=== PATIENT | female | born 1945 | race American Indian/Alaskan Native ===

== ENCOUNTER 2016-11-25 17:25 | Observation (INO) | payer MEDICARE ==
[2016-11-25 17:48] VITALS: BMI 37.8
--- NOTE | 2016-11-25 17:54 | ED PDOC ---
Arrival/HPI - General Chief Complaint: Chest Pain Time Seen by Provider: 11/25/16 17:27 Historian: Patient - Critical Care Critical Care Minutes: 30 minutes - History of Present Illness Narrative History of Present Illness (Text): 11/25/16 18:09 71 yo female with h/o DM, HTN, HCL, PCM/Defibrillator, who presents to the ED c/ o chest pain x 1 week. Pain is waxing and waning constant presssure and at one point in the week radiated to her left shoulder. No shortness of breathe. She didn't take her aspirin today but is on plavix and took that. She denies any fever or cough. She states the her PCM/Defibrillator is going off because she feels it pulsating her body. She denies electrical pain to her chest. She denies any trauma. PMD: Dr. Shawn Washington Natural Resources Manager: Dr. Trae Fall Past Medical History - Provider Review Nursing Documentation Reviewed: Yes - Infectious Disease Hx of Infectious Diseases: None - Reproductive Menopause: Yes - Cardiac Hx Pacemaker: Yes - Pulmonary Hx Respiratory Disorders: Yes Hx Asthma: Yes - Neurological Hx Paralysis: No - HEENT Hx HEENT Disorder: No - Renal Hx Renal Disorder: No - Endocrine/Metabolic Hx Endocrine Disorders: Yes Hx Diabetes Mellitus Type 1: Yes - Hematological/Oncological Hx Blood Transfusions: No Hx Blood Transfusion Reaction: No - Integumentary Hx Dermatological Disorder: No - Musculoskeletal/Rheumatological Hx Musculoskeletal Disorders: Yes - Gastrointestinal Hx Gastrointestinal Disorders: No - Genitourinary/Gynecological Hx Genitourinary Disorders: No - Psychiatric Hx Emotional Abuse: No Hx Physical Abuse: No Hx Substance Use: No - Surgical History Hx Cardiac Catheterization: Yes Hx Coronary Stent: Yes Hx Orthopedic Surgery: Yes (left knee replacement) - Anesthesia Hx Anesthesia Reactions: No Hx Malignant Hyperthermia: No - Suicidal Assessment Feels Threatened In Home Enviroment: No Family/Social History - Physician Review Nursing Documentation Reviewed: Yes Family/Social History: No Known Family HX Smoking Status: Former Smoker Hx Alcohol Use: No Hx Substance Use: No Allergies/Home Meds Allergies/Adverse Reactions: Allergies No Known Allergies Allergy (Verified 11/25/16 17:34) Home Medications: Home Meds Medication Instructions Recorded Confirmed Metformin HCl [Metformin] 1,000 mg PO BID 07/22/13 11/25/16 Carvedilol [Coreg] 25 mg PO BID 11/25/16 11/25/16 Clopidogrel [Plavix] 75 mg PO DAILY 11/25/16 11/25/16 Furosemide [Lasix] 40 mg PO DAILY 11/25/16 11/25/16 Insulin Detemir [Levemir] 25 unit SC [facility] 11/25/16 11/25/16 Review of Systems - Physician Review All systems were reviewed & negative as marked: Yes - Review of Systems Constitutional: Normal Eyes: Normal ENT: Normal Respiratory: Normal. absent: SOB Cardiovascular: Chest Pain, Palpitations, Edema. absent: Calf Pain, LYONS Gastrointestinal: Normal Genitourinary Female: Normal Musculoskeletal: Normal Skin: Normal Neurological: Normal Endocrine: Normal Hemo/Lymphatic: Normal Psychiatric: Normal Physical Exam Vital Signs Reviewed: Yes Vital Signs Temp Pulse Resp BP Pulse Ox 11/25/16 17:42 98 F 69 16 141/63 100 Temperature: Afebrile Blood Pressure: Normal Pulse: Regular Respiratory Rate: Normal Appearance: Positive for: Well-Appearing, Non-Toxic, Comfortable Pain Distress: None Mental Status: Positive for: Alert and Oriented X 3 - Systems Exam Head: Present: Atraumatic, Normocephalic Pupils: Present: PERRL Extroacular Muscles: Present: EOMI Conjunctiva: Present: Normal Mouth: Present: Moist Mucous Membranes Neck: Present: Normal Range of Motion. No: JVD Respiratory/Chest: Present: Clear to Auscultation, Good Air Exchange. No: Respiratory Distress, Accessory Muscle Use Cardiovascular: Present: Regular Rate and Rhythm, Normal S1, S2. No: Murmurs Abdomen: Present: Normal Bowel Sounds. No: Tenderness, Distention, Peritoneal Signs Back: Present: Normal Inspection Upper Extremity: Present: Normal Inspection. No: Cyanosis, Edema Lower Extremity: Present: Normal Inspection, Edema (b/l +1) Neurological: Present: GCS=15, CN II-XII Intact, Speech Normal Skin: Present: Warm, Dry, Normal Color. No: Rashes Psychiatric: Present: Alert, Oriented x 3, Normal Insight, Normal Concentration Medical Decision Making ED Course and Treatment: 11/25/16 17:48 71 yo female with chest pain and feeling like her defibrillator/pacemaker is vibrating her r/o ACS -- Labs -- CXR, EKG -- Aspiring 325mg PO -- Called [employer] at and spoke to Mackenzie popcorn machine operator who will page and immigration consultant to come and interrogate the device [facility] [place], Product [employer] COORDINATOR-D, Model/Serial [id number], Jan 10, 2014 [facility] [employer], Hand Counter, Model/Serial [id number], Jan 10, 2014 [facility] Guidant, Hand Counter, Model/Serial [id number], Jan 10, 2014 [facility] [place], Hand Counter, Model/Serial [id number], Jan 10, 2014 11/25/16 17:54 Majed from [employer] called back to discuss case and will come to evaluate patient. 11/25/16 18:[address] Fall, Natural Resources Manager, who states he knows her very well as his patient. She has normal coronary arteries he states. He recommends to call him when patient is getting interrogated. 11/25/16 19:[address] Lopez to f/u [employer] and Cardiology and reevaluate and disposition - Critical Care Critical Care Minutes: 30 minutes - Lab Interpretations Lab Results: 11/25/16 18:30 Lab Results 11/25/16 18:30: WBC 6.9, RBC 5.14, Hgb 14.0, Hct 40.3, MCV 78.4 L, MCH 27.2, MCHC 34.7, RDW 14.4, Plt Count 137, Gran % 58.8, Lymph % (Auto) 30.5, [place] % ( Auto) 8.6 H, Eos % (Auto) 1.5, Baso % (Auto) 0.6, Gran # 4.06, Lymph # 2.1, [place] # 0.6, Eos # 0.1, Baso # 0.04 11/25/16 18:10: Urine Color Yellow, Urine Appearance Clear, Urine pH 6.0, Ur Specific [place] 1.010, Urine Protein Negative, Urine Glucose (UA) Negative, Urine Ketones Negative, Urine Blood Negative, Urine Nitrate Negative, Urine Bilirubin Negative, Urine Urobilinogen 0.2, Ur Leukocyte Esterase Trace H, Urine RBC 0 - 2, Urine WBC 1 - 3, Ur Epithelial Cells 1 - 3, Urine Bacteria Mod - RAD Interpretation Radiology Orders: 11/25/16 17:47 CHEST PORTABLE [RAD] Stat - EKG Interpretation Interpreted by ED Physician: Yes (Paced at 70 bpm with PVCs) Type: 12 lead EKG - Medication Orders Current Medication Orders: Discontinued Medications Aspirin (Aspirin) 325 mg PO STAT STA Stop: 11/25/16 17:47 Last Admin: 11/25/16 18:15 Dose: 325 mg Disposition/Present on Arrival - Present on Arrival Any Indicators Present on Arrival: No History of DVT/PE: No History of Uncontrolled Diabetes: No Urinary Catheter: No History of Decub. Ulcer: No History Surgical Site Infection Following: None - Disposition Have Diagnosis and Disposition been Completed?: Yes Diagnosis: Chest pain, Defibrillator discharge Disposition Time: 18:20 Patient Problems: Current Active Problems Problem Status Onset Chest pain Acute Defibrillator discharge Acute Condition: FAIR Discharge Instructions (ExitCare): Chest Pain (ED) Referrals: Curly Dixon, [Non-Staff] - Follow up with primary Forms: [employer] App (Azeri)
[2016-11-25 18:39] LABS: URINE BILIRUBIN NEGATIVE (NEGATIVE); URINE BLOOD NEGATIVE (NEGATIVE); URINE GLUCOSE (UA) NEGATIVE (NEGATIVE); URINE KETONE NEGATIVE (NEGATIVE); URINE LEUKOCYTE ESTERASE TRACE Leu/uL (NEGATIVE); URINE PROTEIN NEGATIVE mg/dL (<30 mg/dL); URINE UROBILINOGEN 0.2 E.U./dL (<1 E.U./dL)
[2016-11-25 18:40] LABS: URINE COLOR YELLOW (YELLOW)
[2016-11-25 18:41] LABS: URINE APPEARANCE CLEAR (CLEAR)
[2016-11-25 18:47] LABS: BASO # 0.04 K/mm3 (0.0-2.0); BASO % 0.6 % (0.0-3.0); EOS # 0.1 (0.0-0.7); EOS % 1.5 % (1.5-5.0); GRAN # 4.06 (1.4-6.5); GRAN % 58.8 % (50.0-68.0); HEMATOCRIT 40.3 % (36.0-48.0); LYMPH # 2.1 (1.2-3.4); LYMPH % 30.5 % (22.0-35.0); MEAN CELL VOLUME 78.4 fl (80.0-105.0); MEAN CORPUSCULAR HEMOGLOBIN 27.2 pg (25.0-35.0); MEAN CORPUSCULAR HGB CONC 34.7 g/dl (31.0-37.0); MONO # 0.6 (0.1-0.6); MONO % 8.6 % (1.0-6.0); PLATELET COUNT 137 10^3/uL (120.0-450.0); RED CELL DISTRIBUTION WIDTH 14.4 % (11.5-14.5); WHITE BLOOD COUNT 6.9 10^3/ul (4.5-11.0)
[2016-11-25 18:52] LABS: URINE BACTERIA MOD (NEG); URINE RBC 0 - 2 /hpf (0-2)
[2016-11-25 18:56] LABS: INR 1.01 (0.93-1.08); PARTIAL THROMBOPLASTIN TIME 23.3 Seconds (23.7-30.8)
[2016-11-25 18:58] LABS: ALB/GLOB RATIO 1.3 (1.1-1.8); ALKALINE PHOSPHATASE 68 U/L (38-126); ALT/SGPT 26 U/L (7-56); AST/SGOT 26 U/L (14-36); BILIRUBIN,TOTAL 0.6 mg/dL (0.2-1.3); BLOOD UREA NITROGEN 18 mg/dL (7-21); CALCIUM 9.7 mg/dL (8.4-10.5); CARBON DIOXIDE 28 mmol/L (21-33); CHLORIDE 104 mmol/L (98-107); GFR AFRICAN-AMERICAN > 60; GLUCOSE,RANDOM 222 mg/dL (70-110); MAGNESIUM 1.7 mg/dL (1.7-2.2); POTASSIUM 4.5 mmol/L (3.6-5.0); SODIUM 140 mmol/L (132-148); TOTAL PROTEIN 7.5 g/dL (5.8-8.3)
[2016-11-25 19:14] LABS: TROPONIN I < 0.01 ng/mL
--- NOTE | 2016-11-25 19:36 | ED PDOC ---
Physical Exam Vital Signs Temp Pulse Resp BP Pulse Ox 11/25/16 19:50 63 18 152/80 H 98 11/25/16 17:42 98 F 69 16 141/63 100 Temperature: Afebrile Blood Pressure: Normal Pulse: Regular Respiratory Rate: Normal Appearance: Positive for: Well-Appearing, Non-Toxic, Comfortable Pain Distress: None Mental Status: Positive for: Alert and Oriented X 3 Medical Decision Making ED Course and Treatment: 11/25/16 19:32 Patient endorsed to me by Dr. Wong. Pending Troponin labs. Will reassess and give final disposition.Patient with past medical history that was noted, presented with chest pain. She describes the discomfort as a pressure like sensation. The patient also with complaint of possible malfunction of the pacemaker. Patient was seen and evaluated with interrogation and confirmed that the pacemaker was functioning properly. Patient its currently asymptomatic. 11/25/16 21:[address] Llanos, who is aware and agrees with plan. Accepts pt in to her service. Pt will go to telemetry observation for chest pain. Requests Dr. Cruz on consult. - Lab Interpretations Lab Results: 11/25/16 18:30 11/25/16 18:30 Lab Results 11/25/16 18:30: PT 10.9, INR 1.01, APTT 23.3 L 11/25/16 18:30: Sodium 140, Potassium 4.5, Chloride 104, Carbon Dioxide 28, Anion Gap 13, BUN 18, Creatinine 0.8, Est GFR ( Amer) > 60, Est GFR (Non- Af Amer) > 60, Random Glucose 222 H, Calcium 9.7, Magnesium 1.7, Total Bilirubin 0.6, AST 26, ALT 26, Alkaline Phosphatase 68, Lactate Dehydrogenase 913 H, Total Creatine Kinase 74, Troponin I < 0.01, NT-Pro-B Natriuret Pep 142, Total Protein 7.5, Albumin 4.2, Globulin 3.3, Albumin/Globulin Ratio 1.3 11/25/16 18:30: WBC 6.9, RBC 5.14, Hgb 14.0, Hct 40.3, MCV 78.4 L, MCH 27.2, MCHC 34.7, RDW 14.4, Plt Count 137, Gran % 58.8, Lymph % (Auto) 30.5, [place] % ( Auto) 8.6 H, Eos % (Auto) 1.5, Baso % (Auto) 0.6, Gran # 4.06, Lymph # 2.1, [place] # 0.6, Eos # 0.1, Baso # 0.04 11/25/16 18:10: Urine Color Yellow, Urine Appearance Clear, Urine pH 6.0, Ur Specific [place] 1.010, Urine Protein Negative, Urine Glucose (UA) Negative, Urine Ketones Negative, Urine Blood Negative, Urine Nitrate Negative, Urine Bilirubin Negative, Urine Urobilinogen 0.2, Ur Leukocyte Esterase Trace H, Urine RBC 0 - 2, Urine WBC 1 - 3, Ur Epithelial Cells 1 - 3, Urine Bacteria Mod - RAD Interpretation Radiology Orders: 11/25/16 17:47 CHEST PORTABLE [RAD] Stat - Medication Orders Current Medication Orders: Discontinued Medications Aspirin (Aspirin) 325 mg PO STAT STA Stop: 11/25/16 17:47 Last Admin: 11/25/16 18:15 Dose: 325 mg Disposition/Present on Arrival - Present on Arrival Any Indicators Present on Arrival: No History of DVT/PE: No History of Uncontrolled Diabetes: No Urinary Catheter: No History of Decub. Ulcer: No History Surgical Site Infection Following: None - Disposition Have Diagnosis and Disposition been Completed?: Yes Diagnosis: Chest pain, Defibrillator discharge Disposition: HOSPITALIZED Disposition Time: 21:08 Patient Plan: Observation Patient Problems: Current Active Problems Problem Status Onset Chest pain Acute Defibrillator discharge Acute Condition: STABLE
--- NOTE | 2016-11-25 22:30 | CARD ---
APPROVED REPORT EKG Measurement Heart [id number] [place] 160P28 [id number] <Conclusion> Demand pacemaker, intrinsic rhythm is Sinus with premature ventricular complexes Abnormal ECG
[2016-11-25 23:10] VITALS: O2SAT 97
[2016-11-26] MEDS ORDERED: Insulin Detemir 100 units/ml Vial (Levemir) SC STA (00:52)
--- NOTE | 2016-11-26 00:55 | CP.PCM.PN ---
Subjective - Date & Time of Evaluation Date of Evaluation: 11/26/16 Time of Evaluation: 00:55 - Subjective Subjective: Patient was seen when she was in the ER in bed # 7. She complained of shaking. Stated that her defibrillator went off. Later on , she complained of right hip pain for which tylenol was ordered. Has no other complaints. This 71 year old woman was admitted with chest pain after defibrillator went off. Has PMH of CAD ,AICD, asthma , DM I. Objective - Vital Signs/Intake and Output Vital Signs (last 24 hours): Temp Pulse Resp BP Pulse Ox 98 F 64 16 159/73 H 97 11/25/16 17:42 11/25/16 23:07 11/25/16 23:07 11/25/16 23:07 11/25/16 23:07 - Medications Medications: Current Medications Carvedilol (Coreg) 25 mg PO BID [facility] Clopidogrel Bisulfate (Plavix) 75 mg PO DAILY [facility] Clopidogrel Bisulfate (Plavix) 75 mg PO STAT STA Stop: 11/26/16 00:53 Furosemide (Lasix) 40 mg PO DAILY [facility] Furosemide (Lasix) 40 mg PO STAT STA Stop: 11/26/16 00:52 Insulin Detemir (Levemir) 25 unit SC [facility] Insulin Detemir (Levemir) 25 unit SC STAT STA Stop: 11/26/16 00:53 Insulin Human Regular (Humulin R Low) 0 units SC ACHS [facility] PRN Reason: Protocol Metformin HCl (Glucophage) 1,000 mg PO BID [facility] - Labs Labs: PT 10.9 Seconds (9.9-11.8) 11/25/16 18:30 INR 1.01 (0.93-1.08) 11/25/16 18:30 APTT 23.3 Seconds (23.7-30.8) L 11/25/16 18:30 - Constitutional Appears: Well, No Acute Distress - Head Exam Head Exam: ATRAUMATIC, NORMAL INSPECTION, NORMOCEPHALIC - Eye Exam Eye Exam: Normal appearance - ENT Exam ENT Exam: Normal External Ear Exam - Neck Exam Neck Exam: Normal Inspection - Respiratory Exam Respiratory Exam: Prolonged Expiratory Phase - Cardiovascular Exam Cardiovascular Exam: absent: JVD - GI/Abdominal Exam GI & Abdominal Exam: absent: Distended - Rectal Exam Rectal Exam: Deferred - Exam Additional comments: Deferred. - Extremities Exam Extremities Exam: Normal Inspection - Back Exam Back Exam: NORMAL INSPECTION - Neurological Exam Neurological Exam: Alert, Oriented x3 - Psychiatric Exam Psychiatric exam: Normal Affect, Normal Mood - Skin Skin Exam: Normal Color Assessment and Plan - Assessment and Plan (Free Text) Assessment: Chest pain. Defibrillator went off. Asthma. CAD. S/P coronary stent placement. DM I. Right hip pain. Plan: Tylenol 650 mg PO stat. I called and talked to [facility] representative who said that he would talk to a track layer and will come to see patient in AM.
[2016-11-26 02:36] VITALS: RESP 20; TEMP 98.4
[2016-11-26 06:28] VITALS: BP 103/48
[2016-11-26] MEDS ORDERED: Insulin Detemir 100 units/ml Vial (Levemir) SC SCH (07:30)
--- NOTE | 2016-11-26 07:44 | RAD ---
HISTORY: chest pain COMPARISON: No prior. FINDINGS: Prior cardiac pacemaker/implanted defibrillator is identified in position by apparent left subclavian approach with the generator at the left pectoralis region and at least 3 leads identified entering into the region of the heart. LUNGS: Body habitus alters radiographic penetration however there is no definitive infiltrate appreciated bilaterally. PLEURA: No significant pleural effusion identified, no pneumothorax apparent. CARDIOVASCULAR: Cardiomegaly is difficult to completely exclude, particularly given frontal technique. No pulmonary vascular derangement appreciable. OSSEOUS STRUCTURES: No significant abnormalities. VISUALIZED UPPER ABDOMEN: Normal. OTHER FINDINGS: Neural stimulators identified terminating at the mid to inferior thoracic spine region. IMPRESSION: No definite acute infiltrate or pleural effusion. Cardiomegaly is suggested without pulmonary vascular derangement. Pacemaker identified as per above.
[2016-11-26] MEDS: Insulin Reg-LOW-Coverage SC SCH ×2 (08:18→12:54)
[2016-11-26 09:25] LABS: CHOLESTEROL 256 mg/dL (130-200); MAGNESIUM 1.4 mg/dL (1.7-2.2); PHOSPHOROUS 4.5 mg/dL (2.5-4.5)
[2016-11-26 09:31] LABS: TROPONIN I < 0.01 ng/mL
[2016-11-26 15:11] VITALS: PULSE 64
--- NOTE | 2016-11-26 17:33 | CON ---
DATE: 11/26/2016 REASON FOR CONSULTATION: Cardiac evaluation, complaining of chest pain, history of AICD, history of nonobstructive coronary artery disease. HISTORY OF PRESENT ILLNESS: This is a 71-year-old morbidly obese female, body mass index of 39.9 kg per meter square, being seen by Dr. Trae Fall, history for nonischemic cardiomyopathy, status post cardiac catheterization by Dr. Trae Fall on 07/27/2013, found to be nonobstructive coronary artery disease, decreased LV function, ejection fraction around 20%, admitted with vague chest pain, discomfort on the left side, with very tender and also thinks that the pacemaker is not functioning. The patient had a defibrillator done by Dr. Walden, still complaining of some mild chest pain with very tender on the left side of the chest. PAST MEDICAL HISTORY: Significant for nonobstructive coronary artery disease, nonischemic cardiomyopathy, status post AICD, stress test year ago by Dr. Trae Fall is negative. Previous cardiac workup as follows; the patient had cardiac catheterization on 07/27/2013 at [facility] on 07/27/2013 that showed no significant coronary artery disease, severe LV dysfunction, ejection fraction 15-20%. The patient had MUGA scan done on 11/17/2013 that showed ejection fraction 25%. The patient had a stress test on 05/03/2015 at [facility] by Dr. Trae Fall and read as no significant perfusion abnormality, noted ejection fraction 20-25%. CURRENT MEDICATIONS: The patient is taking metformin 1 g twice, insulin 25 units, Lasix 40, Plavix 75 mg daily, carvedilol 25 mg daily. REVIEW OF SYSTEMS: As per HPI. PHYSICAL EXAMINATION: VITAL SIGNS: As follows; temperature afebrile, heart rate 60, blood pressure 103/48. HEENT: PERRLA. Extraocular muscles intact. NECK: Supple. No carotid bruits or thyromegaly. CHEST: Clear to auscultation. HEART: S1 and S2 regular. ABDOMEN: Soft. EXTREMITIES: Clubbing and cyanosis negative. LABORATORY DATA: Blood workup as follows; WBC 6.9, hemoglobin 14, hematocrit 40.3, platelet count 137. Chemistry shows sodium 140, potassium 4.5, chloride 104, carbon dioxide 28, anion gap of 18, BUN 13, creatinine 0.8, troponin 0.01. Chest pain is a tenderness. IMPRESSION: A 71-year-old female with the past medical history significant for nonischemic cardiomyopathy, status post cardiac catheterization on 07/27/2013, no significant coronary artery disease, cardiomyopathy status post automatic implantable cardioverter-defibrillator. MUGA scan shows dated 11/17/2013 ejection fraction of 20-25%. Recent stress test on 05/03/2015, no perfusion defect. Admitted yesterday with the chest pain, very tender musculoskeletal chest pain, and was also complaining of the pacemaker nonfunctioning. Pacemaker/defibrillator interrogated, made up of [employer] dual chamber, normal functioning, battery life 8 years, proper sensing and threshold. No ventricular tachycardia event detected and the defibrillator did not deliver shock therapy, no evidence of ventricular tachycardia/ventricular fibrillation. Chest pain is musculoskeletal. RECOMMENDATIONS: We will add one more set of troponin. We will add ibuprofen for the chest pain, we will discontinue telemetry. Upon discharge, the patient will be followed up with Dr. Walden for defibrillator. Battery life is 8 years. Last interrogation was done in 10/27/[address] Walden. Last defibrillator/pacemaker interrogation done on 10/27/2016. Last night, the patient had another interrogation done because the patient thinks it is malfunctioning and that shows a normal functioning, normal sensing, made of [employer] and battery life is 8 years. Upon discharge, the patient will be followed up with Dr. Walden and Dr. Trae Fall. We will discontinue telemetry once the troponin is negative. We will add on troponin, TSH. We will add one dose of ibuprofen for the chest pain and we will get echo to assess LV function. We will add lipid profile and troponin. If the troponin remains negative, we will discontinue telemetry. We will follow with you. Thank you Dr. Llanos to providing us the opportunity in taking care of the patient, Flavia Valdez. Trudi Guzman MD
--- NOTE | 2016-11-26 18:39 | CARD ---
APPROVED REPORT EXAM: Two-dimensional and M-mode echocardiogram with Doppler and color Doppler. INDICATION Chest Pain LVFX 2D DIMENSIONS IVSd1.4 (0.7-1.1cm)LVDd4.7 (3.9-5.9cm) PWd1.7 (0.7-1.1cm)LVDs4.1 (2.5-4.0cm) FS (%) 12.7 %LVEF (%)27.4 (>50%) M-Mode DIMENSIONS Aortic Root3.50 (2.2-3.7cm)Aortic Cusp Exc.1.70 (1.5-2.0cm) Aortic Valve AoV Peak Uebrhmkp981.0cm/[place] Peak GR.7mmHg Mitral Valve MV E Bwkxieog98.8cm/sMV A Inrbhwma894.0cm/sE/A ratio0.5 TDI Lateral E' Peak V3.12cm/sMedial E' Peak V3.51cm/sE/Lateral E'17.2 E/Medial E'15.3 Pulmonary Valve PV Peak Fzrlxfdg06.5cm/sPV Peak Grad.3mmHg Tricuspid Valve TR Peak Pdfvtoxw475xj/sRAP LJJXWWQP82qeZdSX Peak Gr.14mmHg [id number] LEFT VENTRICLE The left ventricle is normal size. There is mild to moderate concentric left ventricular hypertrophy. Proximal septal thickening is noted. The systolic function is moderately impaired.EF-25-30% There is global hypokinesis of the left ventricle. Transmitral Doppler flow pattern is Grade III-reversible restrictive diastolic dysfunction. No left ventricle thrombus noted on this study. There is no ventricular septal defect visualized. There is no left ventricular aneurysm. There is no mass noted in the left ventricle. RIGHT VENTRICLE The right ventricle is normal size. There is normal right ventricular wall thickness. The right ventricular systolic function is normal. There is a pacemaker lead in the right ventricle. ATRIA The left atrium is mildly dilated. The right atrium size is normal. There is a catheter/pacemaker lead seen in the right atrium. The interatrial septum is intact with no evidence for an atrial septal defect. AORTIC VALVE The aortic valve is thickened but opens well. No aortic regurgitation is present. There is no aortic valvular stenosis. There is no aortic valvular vegetation. MITRAL VALVE The mitral valve is thickened but opens well. Mitral regurgitation is trace. There is no mitral valve stenosis. There is no evidence of mitral valve prolapse. TRICUSPID VALVE The tricuspid valve leaflets are thickened , but open well. There is trace tricuspid regurgitation.RVSP-24 mmof hg. There is no tricuspid valve stenosis. There is no tricuspid valve prolapse or vegetation. PULMONIC VALVE The pulmonary valve is normal in structure. There is no pulmonic valvular regurgitation. There is no pulmonic valvular stenosis. GREAT VESSELS The aortic root is normal in size. The ascending aorta is normal in size. The pulmonary artery is normal. The IVC is normal in size and collapses >50% with inspiration. PERICARDIAL EFFUSION There is no pleural effusion. There is no pericardial effusion. <Conclusion> The left ventricle is normal size. There is mild to moderate concentric left ventricular hypertrophy. Proximal septal thickening is noted. The systolic function is moderately impaired.EF-25-30% There is a pacemaker lead in the right ventricle. Mitral regurgitation is trace. There is trace tricuspid regurgitation.RVSP-24 mmof hg. The IVC is normal in size and collapses >50% with inspiration. There is no pericardial effusion. AICD Lead in RA/RV
--- NOTE | 2016-11-26 23:17 | CARD ---
APPROVED REPORT EKG Measurement Heart [id number] [place] 170P31 [id number] <Conclusion> Atria sensed, ventricular paced rhythm
== END 2016-11-26 18:08 | disposition home or self-care (01) ==
LOC: ED 17:25 → ERH 21:03 → 2RNO 11-26 01:34
PROVIDERS: ADMIT Internal Medicine; ATTEND Internal Medicine
DX: R07.9 Chest pain, unspecified (principal); I10 Essential (primary) hypertension; E66.01 Morbid (severe) obesity due to excess calories; Z68.39 Body mass index [BMI] 39.0-39.9, adult; I42.8 Other cardiomyopathies; I25.10 Atherosclerotic heart disease of native coronary artery without angina pectoris; E10.9 Type 1 diabetes mellitus without complications; J45.909 Unspecified asthma, uncomplicated; Z79.02 Long term (current) use of antithrombotics/antiplatelets; Z95.0 Presence of cardiac pacemaker; Z95.5 Presence of coronary angioplasty implant and graft; Z95.810 Presence of automatic (implantable) cardiac defibrillator; Z96.652 Presence of left artificial knee joint; Z79.4 Long term (current) use of insulin; R40.2412 Glasgow coma scale score 13-15, at arrival to emergency department
CPT/HCPCS: 36415; 71010; 80053; 80061; 81001; 82550; 82948; 83036; 83615; 83735; 83880; 84100; 84443; 84484; 85025; 85610; 85730; 87086; 93005; 93306; 99285; G0378